=== PATIENT | male | born 1985 | race Caucasian/White ===

== ENCOUNTER 2020-12-05 10:15 | Inpatient (IN) | payer BC ==
[2020-12-05] VITALS (8 sets, daily range): BP systolic 118–144; BP diastolic 72–88
[~2020-12-05] VITALS: Ht 182.9 cm; Wt 104.3 kg
--- NOTE | 2020-12-05 10:35 | PHYS DOC ---
Past History Past Medical History: Asthma, Hypothyroid Past Surgical History: Cholecystectomy Alcohol Use: Rarely Adult General Chief Complaint Chief Complaint: NAUSEA/VOMITING/DIARRHEA HPI HPI Patient is a 35-year-old male presenting for dehydration. Patient presents for approximately 1 week of generalized fatigue and malaise which further developed into constant nausea 48 hours ago. Since that time, he is complained of 6 episodes of nonbloody nonbilious emesis, ongoing diarrhea and muscle aches and cramps "all over". Patient denies any fever, no syncope or falls, no chest pain, shortness of breath, abdominal pain, incontinence, changes in motor or sensory function, no recent long distance travel or known sick contact or COVID- 19 contact. Denies any concerning ingestions recently, recent antibiotics or concerning exposures. Reports waking up today with ongoing symptoms which concerned him prompting him to come into our ER for evaluation. Has history of hypothyroidism, last time TSH levels were checked was " a year or 2 ago". Has history of [id number] diabetes, has been out of all medications, not currently taking Metformin. Review of Systems Review of Systems Fourteen body systems of review of systems have been reviewed. See HPI for pertinent positives and negative responses, other moreno all other systems are negative, non-pertinent or non-contributory Current Medications Current Medications Current Medications Medications (Trade) Dose Ordered Sig/Autumn Start Time Stop Time Status Last Admin Dose Admin Dextrose (Dextrose 50%-Water Syringe) 12.5 gm PRN Q15MIN PRN 12/05/20 12:45 Insulin Human Regular (HumuLIN R VIAL) 10 unit 1X ONCE 12/05/20 12:45 12/05/20 12:46 DC 12/05/20 12:59 Insulin Human Regular 100 unit/ Sodium Chloride 101 ml @ 0 mls/hr CONT PRN 12/05/20 12:45 12/05/20 13:00 Potassium Chloride/Sodium Chloride 1,000 ml @ 250 mls/hr Q4H 12/05/20 12:45 12/05/20 13:14 Sodium Chloride 100 ml @ As Directed STK-MED ONCE 12/05/20 12:53 12/05/20 12:53 DC Allergies Allergies Allergies Coded Allergies Type Severity Reaction Last Updated Verified No Known Drug Allergies 12/05/20 No Physical Exam Physical Exam Constitutional: Well developed, well nourished, no acute distress but appears poorly and fatigued HENT: Normocephalic, atraumatic, bilateral external ears normal, oropharynx dry, no oral exudates, nose normal. Eyes: PERRLA, EOMI, conjunctiva normal, no discharge. Neck: Normal range of motion, no tenderness, supple, no stridor. Cardiovascular: Heart rate tachycardic, sinus rhythm, no murmurs rubs or gallops Lungs & Thorax: Bilateral breath sounds clear to auscultation, increased work of breathing Abdomen: Bowel sounds normal, soft, no tenderness, no masses, no pulsatile masses. Nonsurgical abdomen, no peritoneal signs Skin: Warm, dry, no erythema, no rash. Back: No tenderness, no CVA tenderness. Extremities: No tenderness, no cyanosis, no clubbing, ROM intact, no edema. Neurologic: Alert and oriented X 3, grossly normal motor & sensory function, no focal deficits noted. Psychologic: Affect normal, judgement normal, depressed mood Current Patient Data Vital Signs Vital Signs Date Time Temp Pulse Resp B/P (MAP) Pulse Ox O2 Delivery O2 Flow Rate FiO2 12/05/20 10:20 97.5 138 16 165/118 (134) 98 Room Air Lab Results Laboratory Tests Test 12/05/20 10:30 12/05/20 11:07 12/05/20 11:44 12/05/20 11:52 White Blood Count 26.0 x10^3/uL Red Blood Count 6.26 x10^6/uL Hemoglobin 18.8 g/dL Hematocrit 56.9 % Mean Corpuscular Volume 91 fL Mean Corpuscular Hemoglobin 30 pg Mean Corpuscular Hemoglobin Concent 33 g/dL Red Cell Distribution Width 12.9 % Platelet Count 232 x10^3/uL Neutrophils (%) (Auto) 85 % Lymphocytes (%) (Auto) 8 % Monocytes (%) (Auto) 6 % Eosinophils (%) (Auto) 0 % Basophils (%) (Auto) 1 % Neutrophils # (Auto) 22.1 x10^3uL Lymphocytes # (Auto) 2.1 x10^3/uL Monocytes # (Auto) 1.4 x10^3/uL Eosinophils # (Auto) 0.0 x10^3/uL Basophils # (Auto) 0.4 x10^3/uL Segmented Neutrophils % 89 % Lymphocytes % 6 % Monocytes % 5 % Platelet Estimate Adequate Tear Drop Cells Occ Sodium Level 136 mmol/L Potassium Level 4.7 mmol/L Chloride Level 97 mmol/L Carbon Dioxide Level < 5 mmol/L Anion Gap 34 Blood Urea Nitrogen 19 mg/dL Creatinine 1.8 mg/dL Estimated GFR (Cockcroft-Gault) 43.7 BUN/Creatinine Ratio 11 Glucose Level 469 mg/dL Calcium Level 9.1 mg/dL Total Bilirubin 0.8 mg/dL Aspartate Amino Transf (AST/SGOT) 16 U/L Alanine Aminotransferase (ALT/SGPT) 43 U/L Alkaline Phosphatase 106 U/L Creatine Kinase 59 U/L Troponin I Quantitative < 0.017 ng/mL EW-Osb-U-Type Natriuretic Peptide 33 pg/mL Total Protein 8.5 g/dL Albumin 4.7 g/dL Albumin/Globulin Ratio 1.2 Thyroid Stimulating Hormone (TSH) 1.540 uIU/mL Lactic Acid Level 4.2 mmol/L Bedside Venous pH 7.03 Bedside Venous pCO2 20 mmHg Bedside Venous pO2 43 mmHg Venous Blood HCO3 5 mmol/L POC Venous O2 Saturation (Jamin) 57 % Bedside FiO2 21 Acetone Level Sm pos Test 12/05/20 11:54 12/05/20 12:15 12/05/20 13:03 12/05/20 14:13 Glucose (Fingerstick) 449 mg/dL 403 mg/dL 420 mg/dL Urine Collection Type Unknown Urine Color Yellow Urine Clarity Clear Urine pH 5.0 Urine Specific [place] 1.025 Urine Protein 100 mg/dl Urine Glucose (UA) 500 mg/dL Urine Ketones (Stick) >=160 mg/dL Urine Blood Small Urine Nitrite Neg Urine Bilirubin Neg Urine Urobilinogen Dipstick 0.2 mg/dL Urine Leukocyte Esterase Neg Urine RBC Rare /HPF Urine WBC Occ /HPF Urine Bacteria Few /HPF Urine Hyaline Casts Mod /HPF Urine Mucus Slight /LPF Urine Opiates Screen Neg Urine Methadone Screen Neg Urine Barbiturates Neg Urine Phencyclidine Screen Neg Urine Amphetamine/Methamphetamine Neg Urine Benzodiazepines Screen Neg Urine Cocaine Screen Neg Urine Cannabinoids Screen Neg Urine Ethyl Alcohol Neg Current Medications Medications (Trade) Dose Ordered Sig/Autumn Route PRN Reason Start Time Stop Time Status Last Admin Dose Admin Sodium Chloride 1,000 ml @ 1,000 mls/hr 1X ONCE IV 12/05/20 10:45 12/05/20 11:44 DC 12/05/20 10:45 Sodium Chloride 1,000 ml @ 1,000 mls/hr Q1H IV 12/05/20 10:45 12/05/20 11:44 DC 12/05/20 11:37 Sodium Chloride 1,000 ml @ 1,000 mls/hr 1X ONCE IV 12/05/20 11:45 12/05/20 12:44 DC 12/05/20 11:37 Potassium Chloride/Sodium Chloride 0 ml @ As Directed STK-MED ONCE IV 12/05/20 12:27 12/05/20 12:27 DC Insulin Human Regular (HumuLIN R VIAL) 10 unit 1X ONCE IV 12/05/20 12:45 12/05/20 12:46 DC 12/05/20 12:59 Insulin Human Regular 100 unit/ Sodium Chloride 101 ml @ 0 mls/hr CONT PRN IV SEE I/O RECORD 12/05/20 12:45 12/05/20 13:00 Dextrose (Dextrose 50%-Water Syringe) 12.5 gm PRN Q15MIN PRN IV LOW BLOOD SUGAR 12/05/20 12:45 Potassium Chloride/Sodium Chloride 1,000 ml @ 250 mls/hr Q4H IV 12/05/20 12:45 12/05/20 13:14 Sodium Chloride 100 ml @ As Directed STK-MED ONCE .ROUTE 12/05/20 12:53 12/05/20 12:53 DC EKG EKG EKG ordered and interpreted by myself at 1059 hrs. as sinus rhythm at 125 bpm, prolonged QTC at 513 otherwise unremarkable intervals, no axis deviation, no obvious ischemic findings, no STEMI Radiology/Procedures Radiology/Procedures EXAM: Chest, single view. HISTORY: Tachycardia. COMPARISON: None. FINDINGS: A frontal view of the chest is obtained. There is no infiltrate, pleural effusion or pneumothorax. The heart is normal in size. IMPRESSION: No acute pulmonary finding. Electronically signed by: Jessica Diamond MD (12/05/2020 11:24 AM) [id number] Heart Score HEART Score for Chest Pain: HEART Score for Chest Pain Response (Comments) Value History Slighlty/Non-Suspicious 0 ECG Normal 0 Age < 45 0 Risk Factors 1 or 2 Risk Factors 1 Troponin < Normal Limit 0 Total 1 Risk Factors: Risk Factors: DM, Current or recent (<one month) smoker, HTN, HLP, family history of CAD, obesity. Risk Scores: Risk Factors: DM, Current or recent (<one month) smoker, HTN, HLP, family history of CAD, obesity. Course & Med Decision Making Course & Med Decision Making Pertinent Labs and Imaging studies reviewed. (See chart for details) Discussed most likely diagnosis of DKA. Aggressive IV fluid resuscitation and subsequent insulin bolus and drip initiated while in ER setting I contacted patient's PCP who will service hospitalist, he agreed need for admission and accepted patient under his care I updated patient and on proposed plan of care that includes admission to ICU for continued inpatient medical management, they were both amenable All questions and concerns addressed prior to ER transportation to [facility] ICU for continued inpatient management Critical Care Time This patient required critical care. Due to the fact that the patient required a significant amount of one on one physician - patient contact time, ordering and review of studies, arranging urgent treatment with development of a management plan, evaluation of patients response to treatment with frequent reassessments, and discussions with other providers this patient required 62 minutes of critical care time. Critical care time was indicated due to the inherent instability and/or potential for instability in this patient. The critical care time that is allocated to this patient is above and beyond any time spent on any other billable procedures performed on this patient. Dragon Disclaimer Dragon Disclaimer This electronic medical record was generated, in whole or in part, using a voice recognition dictation system. Departure Departure: Impression: Primary Impression: DKA (diabetic ketoacidoses) Disposition: ADMITTED INPT THIS HOSP Admitting Physician: Cristian Small Condition: STABLE Referrals: PCP,NO (PCP) JEANE KEARNS DO Dec 05, 2020 10:34
[2020-12-05] MEDS ORDERED: IV NORMAL SALINE 1,000ML 1,000 ML IV ONE ×2 (10:45→11:45)
[2020-12-05] MEDS: IV NORMAL SALINE 1,000ML 1,000 ML IV SCH ×3 (10:45→11:37)
[2020-12-05 11:01] LABS: BASO # 0.4 x10^3/uL (0.0-0.2); BASO % 1 % (0-3); EOS % 0 % (0-3); HEMATOCRIT 56.9 % (39.0-53.0); HEMOGLOBIN 18.8 g/dL (13.0-17.5); LYMPH # 2.1 x10^3/uL (1.0-4.8); LYMPH % 8 % (24-48); MEAN CORPUSCULAR HEMOGLOBIN 30 pg (25-35); MEAN CORPUSCULAR HGB CONC 33 g/dL (31-37); MEAN CORPUSCULAR VOLUME 91 fL (79-100); MONO # 1.4 x10^3/uL (0.0-1.1); MONO % 6 % (0-9); NEUT # 22.1 x10^3uL (1.8-7.7); NEUT % 85 % (31-73); PLATELET COUNT 232 x10^3/uL (140-400); RED BLOOD COUNT 6.26 x10^6/uL (4.30-5.70); RED CELL DISTRIBUTION WIDTH 12.9 % (11.5-14.5)
[2020-12-05 11:12] LABS: ALBUMIN 4.7 g/dL (3.4-5.0); ALBUMIN/GLOBULIN RATIO 1.2 (1.0-1.7); ALK PHOS 106 U/L (46-116); ALT (SGPT) 43 U/L (16-63); AST (SGOT) 16 U/L (15-37); BLOOD UREA NITROGEN 19 mg/dL (8-26); BUN/CREATININE RATIO 11 (6-20); CALCIUM 9.1 mg/dL (8.5-10.1); CHLORIDE 97 mmol/L (98-107); CREATININE 1.8 mg/dL (0.7-1.3); GFR 43.7; GLUCOSE 469 mg/dL (70-99); POTASSIUM 4.7 mmol/L (3.5-5.1); SODIUM 136 mmol/L (136-145); TOTAL BILIRUBIN 0.8 mg/dL (0.2-1.0); TOTAL PROTEIN 8.5 g/dL (6.4-8.2)
[2020-12-05 11:24] LABS: ANION GAP 34 (6-14); CARBON DIOXIDE < 5 mmol/L (21-32)
--- NOTE | 2020-12-05 11:27 | RAD ---
EXAM: Chest, single view. HISTORY: Tachycardia. COMPARISON: None. FINDINGS: A frontal view of the chest is obtained. There is no infiltrate, pleural effusion or pneumo thorax. The heart is normal in size. IMPRESSION: No acute pulmonary finding. Electronically signed by: Jessica Diamond MD (12/05/2020 11:24 AM) [id number]
[2020-12-05] MEDS ORDERED: POTASSIUM CL IV ONE (12:27)
[2020-12-05] MEDS ORDERED: [UNRECOGNIZED DRUG - OTHER] IV ONE (12:27)
[2020-12-05 12:34] LABS: BARBITURATES NEG (NEG); BENZODIAZEPINES NEG (NEG); CANNABINOIDS NEG (NEG); COCAINE NEG (NEG); METHADONE NEG (NEG); OPIATES NEG (NEG); PHENCYCLIDINE NEG (NEG)
[2020-12-05] MEDS ORDERED: INSULIN REGULAR VIAL 100 UNIT in IV NORMAL SALINE 100ML 100 ML IV PRN (12:45)
[2020-12-05] MEDS ORDERED: POTASSIUM CL 20MEQ-0.45% NACL 1,000 ML IV SCH (12:45)
[2020-12-05] MEDS ORDERED: DEXTROSE 50% 25 GM / 50ML DISP.SYRIN. IV PRN (12:45)
[2020-12-05] MEDS ORDERED: INSULIN REGULAR 100 UNIT/ML 3ML VIAL. IV ONE (12:45)
[2020-12-05 12:51] LABS: AMPHETAMINE/METHAMPHETAMINE NEG (NEG)
[2020-12-05] MEDS ORDERED: IV NORMAL SALINE 100ML 100 ML ONE (12:53)
[2020-12-05 13:26] LABS: CLARITY,URINE CLEAR; COLOR,URINE YELLOW; GLUCOSE,URINE 500 mg/dL (NEG)
[2020-12-05 13:28] LABS: BACTERIA,URINE FEW /HPF (0-FEW); BILIRUBIN,URINE NEG (NEG); NITRITE,URINE NEG (NEG); RBC,URINE RARE /HPF (0-2); UROBILINOGEN,URINE 0.2 mg/dL (0.2 mg/dL); WBC,URINE OCC /HPF (0-4)
[2020-12-05 13:29] LABS: HYALINE CASTS, URINE MOD /HPF
--- NOTE | 2020-12-05 13:30 | EKG ---
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
[2020-12-05 13:33] LABS: % LYMPHS 6 % (24-48); % MONOS 5 % (0-10); % SEGS 89 % (35-66)
[2020-12-05 13:34] LABS: PLT ESTIMATE ADEQUATE (ADEQUATE)
[2020-12-05 13:35] LABS: TEAR DROP CELLS OCC
[2020-12-05] MEDS ORDERED: ONDANSETRON PF 4 MG/2 ML VIAL. ONE (14:24)
[2020-12-05] MEDS ORDERED: MORPHINE SULFATE 4 MG/ML DISP.SYRIN. ONE (14:24)
[2020-12-05] MEDS ORDERED: MORPHINE SULFATE 4 MG/ML DISP.SYRIN. IM ONE (14:30)
[2020-12-05] MEDS ORDERED: ONDANSETRON PF 4 MG/2 ML VIAL. IVP ONE (14:30)
[2020-12-05] MEDS ORDERED: MORPHINE SULFATE 4 MG/ML DISP.SYRIN. IV ONE (14:45)
--- NOTE | 2020-12-05 15:20 | NUR ---
Sky Barragan a 35 yo male was admitted to ICU-4, ICU status, Dr. Small service. Pt has been N/V/D for last few days, generalized body aches/pains. Pt came to ER and was found to be in DKA. Pt has been placed on DKA protocol and now on insulin drip. Completed admission process, pt connected to monitors. Pt was provided written copies of hospital and unit policies and procedures. Pt verbalized agreement of poc, will proceed and CTM
[2020-12-05] MEDS ORDERED: PIP/TAZO PER PHARMACY MC PRN (16:15)
[2020-12-05] MEDS ORDERED: IV NORMAL SALINE 1,000ML 1,000 ML IV SCH (16:15)
[2020-12-05] MEDS ORDERED: POTASSIUM CHLORIDE 10MEQ 100 ML IV PRN (16:15)
[2020-12-05] MEDS ORDERED: IV RINGERS SOLUTION,LACTATED 1,000 ML IV SCH (19:00)
--- NOTE | 2020-12-05 19:30 | HP ---
ADMIT DATE: 12/05/2020 HISTORY OF PRESENT ILLNESS: A 35-year-old male came in through the Emergency Room, was dehydrated for the last week. The patient has nausea and vomiting for the last 2-3 days. His blood sugar was too high to count. He has muscle aches and cramps. He is markedly dehydrated. He has a history of hypothyroidism as well as insulin-dependent diabetes. He ran out all of his medication and not even taking his metformin. As a result of that, his sugar has been nearly 500. The patient's urine has ketones and he is ketoacidotic. He was placed on an insulin drip in the ER. His white count was 26,000. The patient will be given some bicarb and other medications as he has markedly metabolic acidosis as well. Acetone levels were small positive. We will go ahead and continue to adjust all per protocol for the DKA. PAST MEDICAL HISTORY: As noted, insulin-dependent diabetes, otherwise unknown. MEDICATIONS: As noted, he is not taking them, apparently ran out of them. He has been on metformin and insulin, but he is out of it now. FAMILY HISTORY: Unremarkable. SOCIAL HISTORY: The patient has a [id number] history of smoking. Occasional alcohol use. Denies hard drug use. Full code. REVIEW OF SYSTEMS: Basically just feeling weak, tired, crampy all over. The patient is really dehydrated and having problems with his sugars as indicated. PHYSICAL EXAMINATION: GENERAL: This is a pleasant white male, moderate amount of distress. VITAL SIGNS: Blood pressure 130/80, respiratory rate 29, pulse 130. The patient is afebrile. HEENT: The patient's head was atraumatic, normocephalic. Mouth and throat: Dry mucous membranes. Eyes were without jaundice. NECK: Supple, without JVD, carotid bruits or thyromegaly. LUNGS: Diminished, but basically clear. CARDIOVASCULAR: Regular sinus rhythm, tachycardic; however, sinus tachycardia. ABDOMEN: Soft, nontender, no rebounding, no guarding. Positive bowel sounds, no hepatosplenomegaly was noted. EXTREMITIES: No clubbing, cyanosis, or edema. NEUROLOGIC: Intact as indicated. LABORATORY DATA: White count was in excess of 26,000, hemoglobin 18 and 56. Blood gas probably venous stick shows pH 7.03, pO2 of 43, pCO2 of 43. However, his oxygen saturation on room air is 98%. IMPRESSION AND PLAN: His urine of course did show some ketones, the patient in DKA. We will give him per protocol fluids as well as insulin drip. Continue to monitor. Place him on antibiotics. Possible infection from his possible sepsis, hypertensive urgency, sinus tachycardia, noncompliance. ISABEL PEPE MD DR: ADAM/raymon JOB#: [id number] / [id number]
[2020-12-05] MEDS: ENOXAPARIN 40 MG/0.4 ML SYRINGE. SQ SCH (20:08)
[2020-12-05] MEDS ORDERED: FLU VACC QS 2020-21(6MOS+)/PF 0.5 ML SYRINGE. VAX IM ONE (20:45)
[2020-12-05 20:49] LABS: BGAS PH 7.19 (7.35-7.46)
[2020-12-05 21:34] LABS: CALCIUM 7.4 mg/dL (8.5-10.1); CREATININE 1.3 mg/dL (0.7-1.3); GFR 63.6; PHOSPHORUS 1.4 mg/dL (2.6-4.7)
[2020-12-05] MEDS: INSULIN REGULAR VIAL 100 UNIT in IV NORMAL SALINE 100ML 100 ML IV PRN (22:37)
[2020-12-05] MEDS: PIPERACILLIN/TAZOBACTAM 4.5 GM in IV NORMAL SALINE 50ML 50 ML IV SCH (22:39)
[2020-12-06] VITALS (23 sets, daily range): BP systolic 106–144; BP diastolic 60–91
[2020-12-06] MEDS: POTASSIUM CL 20MEQ D5-0.45NACL 1,000 ML IV PRN ×5 (01:01→23:28)
[2020-12-06 02:14] LABS: CALCIUM 7.2 mg/dL (8.5-10.1); CREATININE 1.3 mg/dL (0.7-1.3); GFR 63.6; POTASSIUM 3.5 mmol/L (3.5-5.1)
[2020-12-06] MEDS ORDERED: POTASSIUM CHLORIDE 20 MEQ TABLET.ER. PO PRN ×2 (04:15)
[2020-12-06 06:18] LABS: CALCIUM 7.6 mg/dL (8.5-10.1); CREATININE 1.2 mg/dL (0.7-1.3); GFR 69.7; POTASSIUM 3.7 mmol/L (3.5-5.1)
[2020-12-06] MEDS: PIPERACILLIN/TAZOBACTAM 4.5 GM in IV NORMAL SALINE 50ML 50 ML IV SCH ×3 (06:19→21:50)
[2020-12-06] MEDS: ACETAMINOPHEN 500 MG TABLET PO PRN (07:48)
[2020-12-06] MEDS: LACTOBACILLUS RHAMNOSUS GG 1 CAPSULE. PO SCH ×2 (07:48→21:49)
[2020-12-06] MEDS ORDERED: SODIUM BICARB ADULT 8.4% 50 MEQ/50 ML DISP.SYRIN. IV ONE (08:00)
[2020-12-06] MEDS ORDERED: FLU VACC QS 2020-21(6MOS+)/PF 0.5 ML SYRINGE. VAX IM ONE (09:00)
[2020-12-06] MEDS: BUTALB/APAP/CAFEIN 50/325/40MG TABLET. PO PRN ×3 (10:04→21:49)
[2020-12-06 10:53] LABS: BASO % 1 % (0-3); EOS % 0 % (0-3); HEMATOCRIT 38.9 % (39.0-53.0); HEMOGLOBIN 13.4 g/dL (13.0-17.5); LYMPH # 1.1 x10^3/uL (1.0-4.8); LYMPH % 14 % (24-48); MEAN CORPUSCULAR HEMOGLOBIN 30 pg (25-35); MEAN CORPUSCULAR HGB CONC 34 g/dL (31-37); MEAN CORPUSCULAR VOLUME 88 fL (79-100); MONO # 0.6 x10^3/uL (0.0-1.1); MONO % 8 % (0-9); NEUT # 6.3 x10^3uL (1.8-7.7); NEUT % 78 % (31-73); PLATELET COUNT 141 x10^3/uL (140-400); RED BLOOD COUNT 4.41 x10^6/uL (4.30-5.70); RED CELL DISTRIBUTION WIDTH 12.9 % (11.5-14.5); WHITE BLOOD COUNT 8.1 x10^3/uL (4.0-11.0)
[2020-12-06 10:56] LABS: CREATININE 1.2 mg/dL (0.7-1.3); GFR 69.7; POTASSIUM 3.3 mmol/L (3.5-5.1)
[2020-12-06] MEDS: POTASSIUM CHLORIDE 20 MEQ TABLET.ER. PO PRN ×2 (11:44→15:16)
[2020-12-06] MEDS: INSULIN REGULAR VIAL 100 UNIT in IV NORMAL SALINE 100ML 100 ML IV PRN (12:33)
[2020-12-06 14:38] LABS: CALCIUM 7.7 mg/dL (8.5-10.1); CREATININE 1.2 mg/dL (0.7-1.3); GFR 69.7; POTASSIUM 3.4 mmol/L (3.5-5.1)
[2020-12-06] MEDS: METOCLOPRAMIDE 5 MG TABLET PO PRN ×2 (15:16→19:35)
[2020-12-06] MEDS: ENOXAPARIN 40 MG/0.4 ML SYRINGE. SQ SCH (16:09)
[2020-12-06] MEDS: METOCLOPRAMIDE HCL 10 MG/10 ML SOLUTION. PO SCH ×2 (16:30→21:00)
[2020-12-06 18:19] LABS: CALCIUM 7.8 mg/dL (8.5-10.1); CREATININE 1.2 mg/dL (0.7-1.3); GFR 69.7; POTASSIUM 3.6 mmol/L (3.5-5.1)
[2020-12-06] MEDS: ZOLPIDEM 5 MG TABLET. PO PRN (21:49)
[2020-12-06 22:30] LABS: CALCIUM 7.8 mg/dL (8.5-10.1); CREATININE 1.1 mg/dL (0.7-1.3); GFR 77.1; POTASSIUM 3.4 mmol/L (3.5-5.1)
[2020-12-07] VITALS (23 sets, daily range): BP systolic 109–142; BP diastolic 56–92
[2020-12-07] MEDS: INSULIN REGULAR VIAL 100 UNIT in IV NORMAL SALINE 100ML 100 ML IV PRN (00:20)
[2020-12-07 02:10] LABS: CALCIUM 7.8 mg/dL (8.5-10.1); CREATININE 1.1 mg/dL (0.7-1.3); GFR 77.1; POTASSIUM 3.3 mmol/L (3.5-5.1)
[2020-12-07] MEDS: POTASSIUM CL 20MEQ D5-0.45NACL 1,000 ML IV PRN ×2 (05:22→16:54)
[2020-12-07] MEDS: PIPERACILLIN/TAZOBACTAM 4.5 GM in IV NORMAL SALINE 50ML 50 ML IV SCH ×3 (05:47→21:28)
[2020-12-07 06:44] LABS: BASO % 1 % (0-3); EOS % 0 % (0-3); HEMATOCRIT 38.1 % (39.0-53.0); LYMPH # 1.5 x10^3/uL (1.0-4.8); LYMPH % 34 % (24-48); MEAN CORPUSCULAR HEMOGLOBIN 30 pg (25-35); MEAN CORPUSCULAR HGB CONC 34 g/dL (31-37); MEAN CORPUSCULAR VOLUME 88 fL (79-100); MONO # 0.4 x10^3/uL (0.0-1.1); MONO % 9 % (0-9); NEUT # 2.4 x10^3uL (1.8-7.7); NEUT % 55 % (31-73); PLATELET COUNT 115 x10^3/uL (140-400); RED BLOOD COUNT 4.31 x10^6/uL (4.30-5.70); RED CELL DISTRIBUTION WIDTH 12.9 % (11.5-14.5); WHITE BLOOD COUNT 4.3 x10^3/uL (4.0-11.0)
[2020-12-07 06:55] LABS: ALBUMIN 2.8 g/dL (3.4-5.0); ALBUMIN/GLOBULIN RATIO 1.1 (1.0-1.7); CALCIUM 7.8 mg/dL (8.5-10.1); CREATININE 0.9 mg/dL (0.7-1.3); GFR 97.2; POTASSIUM 3.3 mmol/L (3.5-5.1); TOTAL BILIRUBIN 0.6 mg/dL (0.2-1.0); TOTAL PROTEIN 5.4 g/dL (6.4-8.2)
[2020-12-07] MEDS: METOCLOPRAMIDE HCL 10 MG/10 ML SOLUTION. PO SCH (07:30)
[2020-12-07] MEDS: METOCLOPRAMIDE 5 MG TABLET PO PRN (07:58)
[2020-12-07] MEDS: LACTOBACILLUS RHAMNOSUS GG 1 CAPSULE. PO SCH ×2 (07:58→20:48)
[2020-12-07] MEDS: POTASSIUM CHLORIDE 20 MEQ TABLET.ER. PO PRN (07:58)
[2020-12-07] MEDS: BUTALB/APAP/CAFEIN 50/325/40MG TABLET. PO PRN ×2 (07:59→15:24)
[2020-12-07] MEDS: IPRATRPIUM/ALBUTEROL 0.5/2.5MG 3 ML NEBU. NEB SCH ×3 (11:58→20:00)
[2020-12-07] MEDS ORDERED: guaiFENesin DM 200MG/20MG 10 ML SYRUP PO ONE (12:00)
[2020-12-07] MEDS ORDERED: guaiFENesin DM 200MG/20MG 10 ML SYRUP PO PRN (12:00)
--- NOTE | 2020-12-07 12:06 | PN ---
DATE: SUBJECTIVE: A 35-year-old gentleman came in with DKA. The patient is resting comfortably. His sugars have come down nicely in the low 100 range. The patient seems to be bringing up some phlegm with his coughing. Other than that, he seems to be doing fairly well there. He is getting some breathing treatments and we will put him on a mucolytic to help him bring up more of that mucus, but originally he did have a white count of 26,000, marked elevation of lactic acids. It is noted that sugars have come down into the low 100s from 400s. He was positive for acetones in his urine. Otherwise, today he is feeling much better. The patient is a very pleasant young man. OBJECTIVE: VITAL SIGNS: Blood pressure 120/80, respiratory rate 13, pulse 98, afebrile presently. GENERAL: The patient is alert and oriented. Speech is fluent, spontaneous, and strong. LUNGS: Show some expiratory wheezes and getting breathing treatments. CARDIOVASCULAR: Regular sinus rhythm. ABDOMEN: Soft, nontender, no rebound or guarding. Positive bowel sounds, no hepatosplenomegaly was noted. EXTREMITIES: No clubbing, cyanosis, nor edema. IMPRESSION: Therefore, of sepsis, acute exacerbation of asthma, diabetic ketoacidosis, noncompliance, severe protein malnutrition, and acute respiratory failure with respiratory acidosis, ketonuria. The patient to continue on IV antibiotic therapy, started on metoclopramide for gastroparesis as noted, also for diagnosis of his asthma, hypokalemia. PLAN: As above. ISABEL PEPE MD DR: ADAM/raymon JOB#: [id number] / [id number]
[2020-12-07] MEDS ORDERED: ELECTROLYTE (NON-ICU) PROTOCOL. MC PRN (12:15)
[2020-12-07] MEDS ORDERED: DEXTROSE 50% 25 GM / 50ML DISP.SYRIN. IV PRN (14:00)
--- NOTE | 2020-12-07 15:14 | NUR ---
Patient removed from Insulin drip per Dr. Small. Placed on level 3 sliding scale. 1430 blood sugar revealed [address] Small contacted regarding blood sugar. Received orders for 15 units Humalog now and add 10 units TID with meals to the level 3 sliding scale. Will continue to monitor.
[2020-12-07] MEDS ORDERED: INSULIN LISPRO 300 UNITS/3 ML VIAL. SQ SCH ×2 (15:15→17:00)
[2020-12-07] MEDS: ENOXAPARIN 40 MG/0.4 ML SYRINGE. SQ SCH (15:25)
[2020-12-07] MEDS ORDERED: INSULIN LISPRO 300 UNITS/3 ML VIAL. SQ ONE (15:45)
[2020-12-07] MEDS: INSULIN LISPRO 300 UNITS/3 ML VIAL. SQ SCH (17:14)
--- NOTE | 2020-12-07 18:02 | NUR ---
Spoke with Dr. Small regarding patient status. Patient insulin continues to trend over 300. Increase TID additional coverage to 15 units instead of 10 and added 30 units QHS of Lantus. Patient also becoming progressively more tachycardic 125-135 HR. No new orders, will continue to monitor patient and report changes to Dr. Small.
[2020-12-07] MEDS ORDERED: INSULIN GLARGINE SYRINGE. SQ SCH (21:00)
[2020-12-07] MEDS: ZOLPIDEM 5 MG TABLET. PO PRN (21:24)
[2020-12-07] MEDS: ACETAMINOPHEN 500 MG TABLET PO PRN (21:24)
[2020-12-08] VITALS (8 sets, daily range): BP systolic 104–132; BP diastolic 61–92
[2020-12-08] MEDS: IPRATRPIUM/ALBUTEROL 0.5/2.5MG 3 ML NEBU. NEB SCH ×2 (04:49→11:45)
[2020-12-08] MEDS: PIPERACILLIN/TAZOBACTAM 4.5 GM in IV NORMAL SALINE 50ML 50 ML IV SCH (05:49)
[2020-12-08] MEDS ORDERED: LEVOTHYROXINE 125 MCG TABLET PO SCH (06:00)
[2020-12-08 06:39] LABS: CALCIUM 7.9 mg/dL (8.5-10.1); CREATININE 0.9 mg/dL (0.7-1.3); GFR 97.2; POTASSIUM 3.1 mmol/L (3.5-5.1)
[2020-12-08] MEDS ORDERED: POTASSIUM CHLORIDE 20 MEQ TABLET.ER. PO ONE (07:45)
[2020-12-08] MEDS: LACTOBACILLUS RHAMNOSUS GG 1 CAPSULE. PO SCH (07:47)
[2020-12-08] MEDS: INSULIN LISPRO 300 UNITS/3 ML VIAL. SQ SCH ×4 (07:48→11:48)
[2020-12-08] MEDS ORDERED: INSULIN GLARGINE SYRINGE. SQ SCH (09:00)
[2020-12-08] MEDS ORDERED: INSU100V8 SQ (11:24)
[2020-12-08] MEDS ORDERED: GUAI5SYR PO (11:24)
[2020-12-08] MEDS ORDERED: METO5TAB PO (11:24)
[2020-12-08] MEDS ORDERED: POTA10TA5 PO (11:24)
[2020-12-08] MEDS ORDERED: BUTA1TAB23 PO (11:24)
[2020-12-08] MEDS ORDERED: IPRA3AMP29 NEB (11:24)
[2020-12-08] MEDS ORDERED: LEVO125T PO (11:24)
[2020-12-08] MEDS ORDERED: INSU100I11 SQ (12:30)
--- NOTE | 2020-12-08 13:07 | NUR ---
Pt discharged from ICU to home. This RN went over insulin therapy, diabetes, and checking blood sugar with patient in depth. Education information given. Patient advised to call if having any complications or questions. Patient verbalized understanding. VSS on discharge and pt ambulated with RN to patient's 's vehicle without difficulty. All belongings left with patient at discharge.
== END 2020-12-08 13:07 | disposition home or self-care (01) | DRG 871 ==
LOC: ER 10:15 → ICU 12:55 → UNDODEPER 14:27
PROVIDERS: ADMIT Family Medicine; ATTEND Family Medicine
DX: A41.9 Sepsis, unspecified organism (principal); E11.10 Type 2 diabetes mellitus with ketoacidosis without coma; E43 Unspecified severe protein-calorie malnutrition; J96.00 Acute respiratory failure, unspecified whether with hypoxia or hypercapnia; J45.901 Unspecified asthma with (acute) exacerbation; E03.9 Hypothyroidism, unspecified; E11.43 Type 2 diabetes mellitus with diabetic autonomic (poly)neuropathy; E86.0 Dehydration; E87.6 Hypokalemia; I16.0 Hypertensive urgency; K31.84 Gastroparesis; Z87.891 Personal history of nicotine dependence; Z91.19 Patient's noncompliance with other medical treatment and regimen; Z79.84 Long term (current) use of oral hypoglycemic drugs; Z68.31 Body mass index [BMI] 31.0-31.9, adult; Z79.899 Other long term (current) drug therapy
CPT/HCPCS: 36415; 36600; 71045; 80048; 80053; 80307; 81001; 82010; 82550; 82803; 82947; 83605; 83880; 84100; 84443; 84484; 85007; 85025; 87040; 87077; 87186; 87205; 90471; 90686; 93005; 94640; 96361; 96365; 96368; 96375; 99291; J1650; J1815; J1956; J2270; J2405; J2543; J7030